=== PATIENT | female | born 1945 | race Caucasian/White ===

== ENCOUNTER → 2016-07-10 | Day surgery (SDC) | payer MEDICARE, OTHER ==
[~2016-07-10] VITALS: Ht 162.6 cm; Wt 88.0 kg
[~2016-07-10] MED LIST: AMITIZA24 MCG PO; ASPIRIN CHEWABL81 MG PO; FUROSEMIDE20 MG PO; LEVOTHYROXINE125 MCG PO; LIPITOR TAB 2020 MG PO; MECLIZINE HCL12.5 MG PO; METOPROLOL TART25 MG PO; NITROSTAT0.4 MG SL; OMEPRAZOLE20 M1 PO; PERFOROMIS20 MCG/2 M INH; PLAVIX 75 MG TA75 MG PO; PROLIA INJ60 MG/1 ML SC; ROBITUSSIN DM473 ML PO; SPIRONOLACTONE25 MG PO; TYLENOL 500 MG500 MG PO; VITAMIN D1000 UNI1 PO
== END | disposition home or self-care (01) ==
LOC: OR 07:12
PROVIDERS: Internal Medicine Pulmonary Disease
PROC: 0B958ZX Drainage of Right Middle Lobe Bronchus, Via Natural or Artificial Opening Endoscopic, Diagnostic (ICD-10-PCS; principal; 2016-07-10 07:30)
DX: J98.11 Atelectasis (principal); J44.9 Chronic obstructive pulmonary disease, unspecified; R93.8 Abnormal findings on diagnostic imaging of other specified body structures; J20.9 Acute bronchitis, unspecified; J96.11 Chronic respiratory failure with hypoxia; I25.10 Atherosclerotic heart disease of native coronary artery without angina pectoris; N18.3 Chronic kidney disease, stage 3 (moderate); I50.9 Heart failure, unspecified; K21.9 Gastro-esophageal reflux disease without esophagitis; I13.0 Hypertensive heart and chronic kidney disease with heart failure and stage 1 through stage 4 chronic kidney disease, or unspecified chronic kidney disease; H91.91 Unspecified hearing loss, right ear; E78.5 Hyperlipidemia, unspecified; E03.9 Hypothyroidism, unspecified; E66.9 Obesity, unspecified; M81.0 Age-related osteoporosis without current pathological fracture; I47.1 Supraventricular tachycardia; I73.9 Peripheral vascular disease, unspecified; I49.3 Ventricular premature depolarization; M19.90 Unspecified osteoarthritis, unspecified site; E55.9 Vitamin D deficiency, unspecified; Z87.891 Personal history of nicotine dependence; Z79.899 Other long term (current) drug therapy; Z86.010 Personal history of colon polyps; Z88.8 Allergy status to other drugs, medicaments and biological substances; Z79.82 Long term (current) use of aspirin; Z79.52 Long term (current) use of systemic steroids; Z79.02 Long term (current) use of antithrombotics/antiplatelets; Z82.49 Family history of ischemic heart disease and other diseases of the circulatory system; Z80.3 Family history of malignant neoplasm of breast; Z80.8 Family history of malignant neoplasm of other organs or systems; Z90.49 Acquired absence of other specified parts of digestive tract
CPT/HCPCS: J2250; J7120

== ENCOUNTER → 2020-07-21 | Outpatient (CLI) | payer MEDICARE, OTHER ==
[~2020-07-21] MED LIST changes: +ACETAMINOPHEN500 M1 PO; +ALDACTONE25 MG PO; +ANORO ELLIPTA1 EACH INH; +ANTACID LIQUID355 ML PO; +ASPIR 8181 MG PO; +BUDESONIDE0.5 MG/2 M NEB; +BUMETANIDE1 MG PO; +BUMEX 1MG TABLET1 MG PO; +CLARITIN10 MG PO; +COLACE100 MG PO; +CRESTOR 10 MG T10 MG PO; +CRESTOR10 MG PO; +CRESTOR20 MG PO; +FERROUS GLUCON240 MG PO; +FERROUS SULFAT325 MG PO; +FLONASE 0.05% N16 GM; +HUMIBID LA TAB600 MG PO; +HYDRALAZINE HCL50 MG PO; +INCRUSE ELLI62.5 MCG INH; +IPRATROPIU0.2 MG/1 M INH; +IPRATROPIU0.2 MG/1 M NEB; +IPRATROPIUM BROMIDE INH; +LASIX40 MG PO; +LEVOFLOXACIN250 MG PO; +LEVOTHYROXINE125 MC1 PO; -LEVOTHYROXINE125 MCG PO; +LOPRESSOR 25 MG25 MG PO; +MELATONIN3 MG PO; +MELATONIN5 M2 PO; +MIRAPEX0.25 MG PO; +MULTIGEN FOLIC1 EACH PO; +NIFEREX 150 MG150 MG PO; +OMEPRAZOLE20 MG PO; +OMNICEF 300 MG300 MG PO; +PERFOROMIS20 MCG/21 INH; +PHENERGAN 25 MG25 M1 PO; +PLAVIX75 MG PO; +PLETAL 100 MG100 MG PO; +PROTONIX 40 MG40 M1 PO; +PROTONIX40 MG PO; +PULMICORT0.5 MG/21 INH; +SEEBRI NEOHALER (WIT INH; +SENNA8.6 MG PO; +STIMULANT LAXA1 EACH PO; +SYNTHROID112 MCG PO; +SYNTHROID137 MCG PO; +TESSALON PERLE100 MG PO; +TOPROL XL25 MG PO; +XOPENEX HFA15 GM INH; +ZOFRAN4 MG PO
== END ==
LOC: HEART 5 10:55
DX: J44.9 Chronic obstructive pulmonary disease, unspecified (principal); F17.210 Nicotine dependence, cigarettes, uncomplicated
CPT/HCPCS: 94010; 94729

== ENCOUNTER 2020-11-05 17:45 | Inpatient (IN) | payer MEDICARE, OTHER ==
[~2020-11-05] VITALS: Ht 162.6 cm; Wt 85.5 kg
[~2020-11-05 17:45] MED LIST changes: -ACETAMINOPHEN500 M1 PO; -BUDESONIDE0.5 MG/2 M NEB; -BUMETANIDE1 MG PO; -CRESTOR10 MG PO; -FLONASE 0.05% N16 GM; -HUMIBID LA TAB600 MG PO; -HYDRALAZINE HCL50 MG PO; -IPRATROPIU0.2 MG/1 M NEB; -LEVOFLOXACIN250 MG PO; -LEVOTHYROXINE125 MC1 PO; -MELATONIN5 M2 PO; -MULTIGEN FOLIC1 EACH PO; -PLAVIX75 MG PO; -PROTONIX40 MG PO; -STIMULANT LAXA1 EACH PO; -ZOFRAN4 MG PO
[2020-11-05 18:10] LABS: HEMOGLOBIN 9.3 gm/dl (12.3-15.3); RED BLOOD COUNT 3.26 M/UL (4.00-5.10); WHITE BLOOD COUNT 13.2 K/UL (4.5-11.0)
[2020-11-05] MEDS ORDERED: ACETAMINOPHEN500 M1 PO (22:11)
[2020-11-05] MEDS ORDERED: CRESTOR10 MG PO (22:11)
[2020-11-05] MEDS ORDERED: PLAVIX75 MG PO (22:11)
[2020-11-05] MEDS ORDERED: LOPRESSOR 25 MG25 MG PO (22:12)
[2020-11-05] MEDS ORDERED: PROTONIX40 MG PO (22:12)
[2020-11-05] MEDS ORDERED: MELATONIN5 M2 PO (22:13)
[2020-11-05] MEDS ORDERED: MIRAPEX0.25 MG PO (22:13)
[2020-11-05] MEDS ORDERED: LEVOTHYROXINE125 MC1 PO (22:13)
[2020-11-05] MEDS ORDERED: HYDRALAZINE HCL50 MG PO (22:13)
[2020-11-05] MEDS ORDERED: TESSALON PERLE100 MG PO (22:14)
[2020-11-05] MEDS ORDERED: ZOFRAN4 MG PO (22:14)
[2020-11-05] MEDS ORDERED: BUMETANIDE1 MG PO (22:14)
[2020-11-05] MEDS ORDERED: MULTIGEN FOLIC1 EACH PO (22:15)
[2020-11-05] MEDS ORDERED: FLONASE 0.05% N16 GM (22:16)
[2020-11-06 03:08] LABS: HEMOGLOBIN 8.8 gm/dl (12.3-15.3); RED BLOOD COUNT 3.06 M/UL (4.00-5.10); WHITE BLOOD COUNT 14.9 K/UL (4.5-11.0)
[2020-11-07 05:21] LABS: HEMOGLOBIN 8.3 gm/dl (12.3-15.3); RED BLOOD COUNT 2.86 M/UL (4.00-5.10); WHITE BLOOD COUNT 13.3 K/UL (4.5-11.0)
[2020-11-08 03:36] LABS: HEMOGLOBIN 7.6 gm/dl (12.3-15.3); RED BLOOD COUNT 2.66 M/UL (4.00-5.10)
[2020-11-08 03:45] LABS: WHITE BLOOD COUNT 9.3 K/UL (4.5-11.0)
[2020-11-09 03:51] LABS: HEMOGLOBIN 7.8 gm/dl (12.3-15.3); RED BLOOD COUNT 2.74 M/UL (4.00-5.10); WHITE BLOOD COUNT 8.3 K/UL (4.5-11.0)
[2020-11-10 08:11] LABS: HEMOGLOBIN 7.6 gm/dl (12.3-15.3); RED BLOOD COUNT 2.65 M/UL (4.00-5.10); WHITE BLOOD COUNT 6.7 K/UL (4.5-11.0)
[2020-11-11 06:48] LABS: WHITE BLOOD COUNT 6.2 K/UL (4.5-11.0)
[2020-11-11 06:49] LABS: RED BLOOD COUNT 3.15 M/UL (4.00-5.10)
[2020-11-12 03:38] LABS: HEMOGLOBIN 9.1 gm/dl (12.3-15.3); RED BLOOD COUNT 3.2 M/UL (4.00-5.10); WHITE BLOOD COUNT 7.4 K/UL (4.5-11.0)
[2020-11-13 04:59] LABS: HEMOGLOBIN 9.5 gm/dl (12.3-15.3); RED BLOOD COUNT 3.32 M/UL (4.00-5.10); WHITE BLOOD COUNT 8.3 K/UL (4.5-11.0)
[2020-11-13 09:12] LABS: RED BLOOD COUNT 3.46 M/UL (4.00-5.10); WHITE BLOOD COUNT 7.4 K/UL (4.5-11.0)
[2020-11-13] MEDS ORDERED: STIMULANT LAXA1 EACH PO (17:49)
[2020-11-13] MEDS ORDERED: HUMIBID LA TAB600 MG PO (17:49)
[2020-11-13] MEDS ORDERED: BUDESONIDE0.5 MG/2 M NEB (17:49)
[2020-11-13] MEDS ORDERED: IPRATROPIU0.2 MG/1 M NEB (17:49)
[2020-11-13] MEDS ORDERED: BUMETANIDE1 MG PO (17:49)
[2020-11-13] MEDS ORDERED: LEVOFLOXACIN250 MG PO (18:09)
== END 2020-11-13 19:48 | disposition home or self-care (01) | DRG 177 ==
LOC: ER1 17:45 → M/S 19:26 → CDU 19:26 → M/S 20:55
PROVIDERS: Emergency Medicine; Internal Medicine; Internal Medicine Nephrology; Physician Assistant; ADMIT Internal Medicine Infectious Disease
PROC: 5A09557 Assistance with Respiratory Ventilation, Greater than 96 Consecutive Hours, Continuous Positive Airway Pressure (ICD-10-PCS; principal; 2020-11-05)
DX: J69.0 Pneumonitis due to inhalation of food and vomit (principal); J96.21 Acute and chronic respiratory failure with hypoxia; I50.33 Acute on chronic diastolic (congestive) heart failure; J96.22 Acute and chronic respiratory failure with hypercapnia; E87.3 Alkalosis; E87.2 Acidosis; N17.9 Acute kidney failure, unspecified; I13.0 Hypertensive heart and chronic kidney disease with heart failure and stage 1 through stage 4 chronic kidney disease, or unspecified chronic kidney disease; J70.0 Acute pulmonary manifestations due to radiation; J98.4 Other disorders of lung; J44.9 Chronic obstructive pulmonary disease, unspecified; R53.1 Weakness; I27.20 Pulmonary hypertension, unspecified; R60.1 Generalized edema; D63.8 Anemia in other chronic diseases classified elsewhere; I25.10 Atherosclerotic heart disease of native coronary artery without angina pectoris; K21.9 Gastro-esophageal reflux disease without esophagitis; E03.9 Hypothyroidism, unspecified; E78.5 Hyperlipidemia, unspecified; I07.1 Rheumatic tricuspid insufficiency; N18.30 Chronic kidney disease, stage 3 unspecified; D64.89 Other specified anemias; E87.5 Hyperkalemia; Z66 Do not resuscitate; Z90.49 Acquired absence of other specified parts of digestive tract; Z91.19 Patient's noncompliance with other medical treatment and regimen; Z98.42 Cataract extraction status, left eye; Z99.81 Dependence on supplemental oxygen; Z86.73 Personal history of transient ischemic attack (TIA), and cerebral infarction without residual deficits; Z98.61 Coronary angioplasty status; Z98.41 Cataract extraction status, right eye; Z84.1 Family history of disorders of kidney and ureter; Z84.89 Family history of other specified conditions; Z88.8 Allergy status to other drugs, medicaments and biological substances; Z72.0 Tobacco use
CPT/HCPCS: 36415; 36430; 36600; 71045; 80048; 80053; 82550; 82553; 82607; 82728; 82746; 82803; 83540; 83550; 83605; 83735; 83874; 83880; 84439; 84443; 84484; 85025; 85045; 86850; 86900; 86901; 86920; 93005; 94640; 94660; 94664; 94760; 97116-GP-CQ; 97161; 97530; 97530-GP-CQ; 99285; J1100; J1335; J1650; J1956; P9016; P9047; U0002

== ENCOUNTER 2021-01-30 17:26 | Emergency (ER) | payer MEDICARE, OTHER ==
[~2021-01-30 17:26] MED LIST changes: +ACETAMINOPHEN500 M1 PO; +BUDESONIDE0.5 MG/2 M NEB; +BUMETANIDE1 MG PO; +CRESTOR10 MG PO; +FLONASE 0.05% N16 GM; +HUMIBID LA TAB600 MG PO; +HYDRALAZINE HCL50 MG PO; +IPRATROPIU0.2 MG/1 M NEB; +LEVOFLOXACIN250 MG PO; +LEVOTHYROXINE125 MC1 PO; +MELATONIN5 M2 PO; +MULTIGEN FOLIC1 EACH PO; +PLAVIX75 MG PO; +PROTONIX40 MG PO; +STIMULANT LAXA1 EACH PO; +ZOFRAN4 MG PO
[2021-01-30 18:42] LABS: RED BLOOD COUNT 2.65 M/UL (4.00-5.10); WHITE BLOOD COUNT 6.7 K/UL (4.5-11.0)
[2021-01-30 19:13] LABS: BUN/CREATININE RATIO 31 (0-10)
== END 2021-01-31 00:18 | disposition expired ==
LOC: ER1 17:26 → CDU 20:33 → ER1 01-31 00:18
PROVIDERS: Student in an Organized Health Care Education/Training Program
DX: J44.1 Chronic obstructive pulmonary disease with (acute) exacerbation (principal); J96.02 Acute respiratory failure with hypercapnia; I10 Essential (primary) hypertension; F17.200 Nicotine dependence, unspecified, uncomplicated; Z85.118 Personal history of other malignant neoplasm of bronchus and lung; Z20.822 Contact with and (suspected) exposure to COVID-19
CPT/HCPCS: 36600; 71045; 80053; 82550; 82553; 82800; 82803; 83874; 84484; 85025; 93005; 94660; 96374; 99285; J0696; J1100; J1200; J1650; J1720; J2270; U0002